=== PATIENT | male | born 1990 | race Caucasian/White ===

== ENCOUNTER 2018-03-06 22:21 | Emergency (ER) | payer SELFPAY ==
[~2018-03-06] VITALS: Ht 167.6 cm; Wt 93.9 kg
[~2018-03-06 22:21] MED LIST: ABILIFY; AGM875T PO; AMOX250S6 PO; AMOX500C2 PO; ARIP10TA2 PO; BENZ-13 PO; CELEXA; CIPR500T4 PO; CONCERTA PO; DEXAMETHASONE PO; HYDR118S PO; ONDA8TAB13 PO; RT-ALBUINH IH; TETRACAINE LOLLIPOPS PO; TRAZ150T42 PO
--- OUTSIDE RECORDS SUMMARY | 2018-03-06 22:26 | XMS REPORT ---
Author Author ARIANE GUZMAN Organization [facility] Address [address] [place] [address] Care Team Providers Care Gasateria Attendant Name Role Phone THOMASARIANE Unavailable PROBLEMS Type Condition ICD9-CM Code [id number] Code Onset Dates Condition Status SNOMED Code Problem Bipolar II disorder F31.81 Active 49460273 Problem Other and unspecified bipolar disorders 296.89 Active 27006429 ALLERGIES Substance Reaction Event Type Date Status Latuda agitation Drug Allergy Mar, Active ENCOUNTERS Encounter Location Date Diagnosis [facility] [id number] [place] [address]- [address]10 Mar, Bipolar II disorder F31.81 [facility] [id number] [place] [address]26[address]- [address] Nov, [facility] [id number] [place] [address]0939- 1704 Nov, [facility] [id number] [place] [address] 42644- 2745 Mar, [facility] [id number] [place] [address] 45587- 9759 Mar, [facility] [id number] [place] [address]- [address]23 December, [facility] [id number] [place] [address]- 4848 December, [facility] [id number] [place] [address] 65196- 8734 Nov, [facility] [id number] [place] [address] 49443- 4890 Nov, [facility] [id number] [place] [address] 66837- 2546 Nov, [facility] [place] [facility] [address] [id number] [place] [address] Oct, [facility] [place] [facility] [address] [id number] [place] [address] 1834 Oct, [facility] [place] [facility] [address] [id number] [place] [address] Aug, [facility] [place] [facility] [address] [id number] [place] [address] 1108 Aug, [facility] [place] [facility] [address] [id number] [place] [address]- 1069 Aug, [facility] [place] [facility] [address] [id number] [place] [address] 8714 Aug, [facility] [place] [facility] [address] [id number] [place] [address] 9199 Aug, [facility] [place] [facility] [address] [id number] [place] [address] 6486 Aug, [facility] [place] [facility] [address] [id number] [place] [address] 3458 Aug, [facility] [place] [facility] [address] [id number] [place] [address] 3152 Aug, [facility] [place] [facility] [address] [id number] [place] [address] 8446 Aug, [facility] [place] [facility] [address] [id number] [place] [address] 5110 Aug, [facility] [place] [facility] [address] [id number] [place] [address] Aug, [facility] [place] [facility] [address] [id number] [place] [address] 2310 Jun, [facility] [place] [facility] [address] [id number] [place] [address] 7243 Jun, [facility] [place] [facility] [address] [id number] [place] [address]- 9293 May, [facility] [address] [id number] [place] [address] 3651 17 Apr, 2013 [facility] [place] [facility] [address] [id number] [place] [address] 2956 13 Apr, 2013 [facility] [address] [id number] [place] [address]- 3382 12 Apr, 2013 [facility] [address] [id number] [place] [address] 7343 10 Apr, 2013 [facility] [address] [id number] [place] [address] 4448 Apr, [facility] [address] [id number] [place] [address] 1600 Mar, [facility] [address] [id number] [place] [address] 3298 Mar, [facility] [address] [id number] [place] [address] 3658 Mar, [facility] [address] [id number] [place] [address] 8026 Feb, [facility] [address] [id number] [place] [address] 6595 Feb, [facility] [place] [facility] [address] [id number] [place] [address] 2861 Feb, [facility] [address] [id number] [place] [address]- 1085 Feb, [facility] [place] [facility] [address] [id number] [place] [address] 9700 Jan, [facility] [place] [facility] [address] [id number] [place] [address]- 2546 Jan, [facility] [place] [facility] [address] [id number] [place] [address]- 9085 December, [facility] [address] [facility] [id number] [place] [address]- 6698 Aug, [facility] [address] [facility] [id number] [place] [address]- 6286 Aug, [facility] [address] [facility] [id number] [place] [address]- 0506 Aug, [facility] [address] [facility] [id number] [place] [address]- 6226 Jul, [facility] [address] [facility] [id number] [place] [address] 7325 Jul, [facility] [address] [facility] [id number], [place] [address] Mar, [facility] [address] [facility] [id number] [place] [address]- 9146 Feb, [facility] [address] [id number], [place] [address] Feb, [facility] [address] [facility] [id number], [place] [address] Jan, [facility] [address] [id number], [place] [address] Oct, [facility] [address] [id number], [place] [address] Sep, [facility] [address] [facility] [id number], [place] [address] Sep, [facility] [address] [facility] [id number], [place] [address] Sep, [facility] [address] [facility] [id number], [place] [address] 07 Sep, 2011 [facility] [address] [id number], [place] [address] Jun, IMMUNIZATIONS No Known Immunizations SOCIAL HISTORY Never Assessed REASON FOR VISIT longterm rx PLAN OF CARE VITAL SIGNS MEDICATIONS Medication Instructions Dosage Frequency Start Date End Date Duration Status Zyprexa 20 MG Orally 2 times a day 1/2 tablet 12h December, Active RESULTS No Results PROCEDURES No Known procedures INSTRUCTIONS MEDICATIONS ADMINISTERED No Known Medications
[2018-03-06] MEDS ORDERED: AMOX-358 PO (23:44)
--- NOTE | 2018-03-06 23:44 | ED EENT ---
History of Present Illness General Chief Complaint: Oral/Throat Problems Stated Complaint: SORE THROAT, CANT KEEP ANYTHING DOWN Nursing Triage Note: SORE THROAT Source: patient History of Present Illness Date Seen by Provider: Mar 06, 2018 Time Seen by Provider: 23:30 Initial Comments PT ARRIVES VIA POV STATES "I CAN'T KEEP MY TEMPERATURE DOWN" --HAS NOT CHECKED HIS TEMP AT ANY TIME ALSO C/O SORE THROAT--STATES HE CAN'T EAT BECAUSE HIS THROAT HURTS. NO PROBLEMS SWALLOWING LIQUIDS OR SALIVA SYMPTOMS BEGAN YESTERDAY TOOK 2 TYLENOL EXTRA STRENGTH A COUPLE OF HOURS AGO--HAS NOT TAKEN ANYTHING ELSE FOR SYMPTOMS NO KNOWN SICK CONTACTS PCP: [facility] Allergies and Home Medications Allergies Coded Allergies: atomoxetine (Verified Allergy, Unknown, FACIAL SWELLING, 11/25/15) methylphenidate (Verified Allergy, Unknown, 11/25/15) Home Medications Amoxicillin/Potassium Clav 1 Each Tablet, 1 EACH PO BID Prescribed by: SMILEY DIETRICH on 03/06/18 6276 Patient Home Medication List Home Medication List Reviewed: Yes Review of Systems Constitutional: see HPI, fever Eyes: No Symptoms Reported Ears: No Symptoms Reported Nose: no symptoms reported Throat: see HPI, pain Respiratory: no symptoms reported Cardiovascular: no symptoms reported Gastrointestinal: no symptoms reported Musculoskeletal: no symptoms reported Skin: no symptoms reported Neurological: No Symptoms Reported Hematologic/Lymphatic: No Symptoms Reported Immunological/Allergic: no symptoms reported Past Fbiddzc-Ndhnig-Qufhko Hx Patient Social History Alcohol Use: Occasionally Uses (HISTORY OF ABUSE, NOW ONLY OCCASIONALLY DRINKS) Recreational Drug Use: No Smoking Status: Current Everyday Smoker (1 PPD) Type Used: Cigarettes 2nd Hand Smoke Exposure: Yes Recent Foreign Travel: No Contact w/Someone Who Travel: No Recent Infectious Disease Expo: No Recent Hopitalizations: No Immunizations Up To Date Tetanus Booster (TDap): Unknown Seasonal Allergies Seasonal Allergies: No Past Medical History Surgeries: Yes (EGD/COLONOSCOPY) Adenoidectomy, Orthopedic, Tonsillectomy Respiratory: No Cardiac: No Neurological: No Genitourinary: No Gastrointestinal: No Musculoskeletal: No Endocrine: No HEENT: Yes (S/P T&A) Tonsilitis Cancer: No Psychosocial: Yes (EXTENSIVE PSYCH ISSUES) ADD/ADHD, Anxiety, Bipolar, Schizophrenia, Depression Integumentary: No Blood Disorders: No Family Medical History No Pertinent Family Hx Physical Exam Vital Signs Vital Signs - First Documented 7/25/18 23:02 Temp 97.9 Pulse 90 Resp 18 B/P (MAP) 134/98 (110) Pulse Ox 94 O2 Delivery Room Air Height, Weight, BMI Height: 5'6" Weight: 207lbs. oz. 93.170211qz; 32.28 BMI Method:Stated General Appearance: WD/WN, no apparent distress, other (MALODOROUS, DIRTY. REFUSES TO STOP TALKING AND TEXTING ON PHONE THROUGHOUT ENTIRE ER STAY, AND FEMALE IN ROOM WITH PT DOING THE SAME ) Eyes: bilateral eye normal inspection, bilateral eye PERRL, bilateral eye EOMI Ears: bilateral ear auricle normal, bilateral ear canal normal, bilateral ear TM normal Nose: normal inspection Mouth/Throat: No tonsillar swelling, No uvula swelling, No voice changes; other (PHAYRNGEAL ERYTHEMA) Neck: full range of motion, supple, lymphadenopathy (R) (MILD ANTERIOR), lymphadenopathy (L) (MILD ANTERIOR) Cardiovascular: regular rate, rhythm, no murmur Respiratory: normal breath sounds, no respiratory distress, no accessory muscle use Gastrointestinal: non tender, soft, no organomegaly Neurologic/Psychiatric: hospital clinic assistant II-XII nml as tested, no motor/sensory deficits, alert, oriented x 3 Skin: normal color, warm/dry; No rash; tattoos/piercings (EXTENSIVE TATTOOS) Progress/Results/Core Measures Results/Orders My Orders Orders - SMILEY DIETRICH DO Amoxicillin/Clavulanate Tablet (Augmenti (03/06/18 23:45) Vital Signs/I&O 03/06/18 03/06/18 23:02 23:51 Temp 97.9 98.0 Pulse 90 86 Resp 18 16 B/P (MAP) 134/98 (110) 132/91 (110) Pulse Ox 94 95 O2 Delivery Room Air Room Air Blood Pressure Mean: 110 Departure Impression Primary Impression: Pharyngitis Disposition: 01 HOME, SELF-CARE Condition: Stable Departure-Patient Inst. Referrals: NO,LOCAL PHYSICIAN (PCP/Family) Primary Care Physician Patient Instructions: Sore Throat, Adult (DC) Add. Discharge Instructions: LOTS OF CLEAR LIQUIDS FREQUENT SALT WATER GARGLES TYLENOL 1 GRAM/ MOTRIN 800 MG 4 TIMES A DAY FOR PAIN OR FEVER FOLLOW UP WITH YOUR DR IN 3-4 DAYS IF NO BETTER All discharge instructions reviewed with patient and/or family. Voiced understanding. Scripts Amoxicillin/Potassium Clav (Augmentin 875-125 Tablet) 1 Each Tablet 1 EACH PO BID for INFECTION, #20 TAB Prov: SMILEY DIETRICH DO 03/06/18 SMILEY DIETRICH DO Mar 06, 2018 23:44
[2018-03-06] MEDS ORDERED: AUGMENTIN 875 MG TAB (AMOXICILLIN/CLAVULANATE) PO SCH (23:45)
[2018-03-06 23:51] VITALS: BP 132/91
== END 2018-03-06 23:51 | disposition home or self-care (01) ==
LOC: EDUNIT# 22:21 → ER 22:23
DX: J02.9 Acute pharyngitis, unspecified (principal); F90.9 Attention-deficit hyperactivity disorder, unspecified type; F41.9 Anxiety disorder, unspecified; F31.9 Bipolar disorder, unspecified; F20.9 Schizophrenia, unspecified; F17.210 Nicotine dependence, cigarettes, uncomplicated; Z90.89 Acquired absence of other organs; Z88.8 Allergy status to other drugs, medicaments and biological substances
CPT/HCPCS: 99283